=== PATIENT | male | born 1980 | race Caucasian/White ===

== ENCOUNTER → 2016-08-01 | Outpatient (CLI) | payer OTHER ==
[~2016-08-01] MED LIST: BUPR-79 PO; BUPR150T5 PO; BUPR1SUB SL; BUPR8MIS SL; ESCI10TA17 PO; IBUP-1050 PO; LXP/20 PO; TEST1INJ2 INJ; WLLXL300 PO
[2016-08-01 18:50] LABS: ALT/SGPT 54 U/L (12-78); BLOOD UREA NITROGEN 16 mg/dl (7-18); BUN/CREATININE RATIO 17.1 (10-20); CARBON DIOXIDE 27 mmol/L (21-32); CHLORIDE 101 mmol/L (98-107); CHOLESTEROL 178 mg/dl (0-200); CREATININE 0.93 mg/dl (0.60-1.40); GLUCOSE 86 mg/dl (70-99); POTASSIUM 4.3 mmol/L (3.5-5.1); SODIUM 134 mmol/L (136-145)
[2016-08-01 19:00] LABS: ALB/GLOB RATIO 0.9 (0.9-2); ALKALINE PHOSPHATASE 140 U/L (45-117); AST/SGOT 36 U/L (15-37); THYROID STIMULATING HORMONE 0.829 uIu/ml (0.300-4.500)
[2016-08-01 20:02] LABS: LYME DISEASE AB IGM NEG (NEG)
[2016-08-01 20:04] LABS: LYME DISEASE AB IGG NEG (NEG)
[2016-08-02 06:06] LABS: ESTIMATED AVERAGE GLUCOSE 91 mg/dl; HA1C FLAG Normal (Normal)
[2016-08-04 16:38] LABS: IGA SERUM 208 mg/dL (81-463); TESTOSTERONE,TOTAL 351 ng/dL (250-1100); TIS TRANS IGA 1 U/mL (<4)
== END | disposition home or self-care (01) ==
LOC: C.LAB 17:57
PROVIDERS: ATTEND Family Medicine
DX: R53.83 Other fatigue (principal); Z51.81 Encounter for therapeutic drug level monitoring; Z79.899 Other long term (current) drug therapy

== ENCOUNTER 2016-11-01 00:07 | Emergency (ER) | payer OTHER ==
[~2016-11-01] VITALS: Ht 175.3 cm; Wt 106.7 kg
[~2016-11-01 00:07] MED LIST changes: -BUPR150T5 PO; -BUPR8MIS SL; -LXP/20 PO; -WLLXL300 PO
[2016-11-01 00:12] VITALS: TEMP 36.7; Ht 175.3 cm; Wt 106.7 kg
[2016-11-01] MEDS ORDERED: BUPR150T5 PO (01:26)
[2016-11-01] MEDS ORDERED: WLLXL300 PO (01:26)
[2016-11-01] MEDS ORDERED: BUPR8MIS SL (01:26)
[2016-11-01] MEDS ORDERED: LXP/20 PO (01:26)
[2016-11-01 01:52] VITALS: BP 138/88; PULSE 83; O2SAT 97
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
== END 2016-11-01 01:50 | disposition home or self-care (01) ==
LOC: C.EDB 00:10
DX: S69.91XA Unspecified injury of right wrist, hand and finger(s), initial encounter (principal); S60.552A Superficial foreign body of left hand, initial encounter; T14.8 Other injury of unspecified body region; V43.52XA Car driver injured in collision with other type car in traffic accident, initial encounter; F31.9 Bipolar disorder, unspecified; G47.33 Obstructive sleep apnea (adult) (pediatric); Z87.891 Personal history of nicotine dependence; Z79.899 Other long term (current) drug therapy